=== PATIENT | female | born 2000 | race Caucasian/White ===

== ENCOUNTER 2023-04-08 22:09 | Outpatient (REF) | payer OTHER, SELFPAY ==
[2023-04-08 22:50] LABS: Basophils Absolute Auto 0.06 K/uL (0.00-0.30); Eosinophils Absolute Auto 0.04 K/uL (0.00-0.50); Eosinophils Percent Auto 0.7 % (0.0-7.0); Hematocrit 38.8 % (33.0-51.0); Immature Granulocytes Abs Auto 0.01 K/uL (0.00-0.30); Immature Granulocytes Pct Auto 0.2 %; Lymphocytes Percent Auto 30.7 % (20-44); Mean Corpuscular HGB Conc 34 gm/dL (32-36); Mean Corpuscular Hemoglobin 30 pg (26-34); Mean Corpuscular Volume 90 fL (80-100); Monocytes Percent Auto 5.8 % (0.0-11.0); Neutrophils Absolute Auto 3.61 K/uL (1.7-7.0); Neutrophils Percent Auto 61.6 % (42.0-72.0); Platelet Count* 413 K/uL (140-440); RDW Coefficient of Variation % 12.7 % (11.5-15.5); Red Blood Count 4.29 m/uL (4.00-5.20); White Blood Count* 5.86 K/uL (4.50-11.00)
[2023-04-08 23:05] LABS: Slide Review Reflex No
[2023-04-10 07:03] LABS: TPO Antibody 2.6 IU/mL (0.0-9.0); Thyroglobulin Antibody <0.9 IU/mL (0.0-4.0)
== END 2023-04-08 22:10 | disposition home or self-care (01) ==
LOC: NPINS 22:09
PROVIDERS: PCP Nurse Practitioner Family; Visit Provider Nurse Practitioner Family
DX: R07.0 Pain in throat (principal)
CPT/HCPCS: 84443; 85025; 86376; 86800

== ENCOUNTER 2023-05-30 11:25 | Outpatient (CLI) | payer OTHER, SELFPAY | END 2023-05-30 11:26 | disposition home or self-care (01) | LOC: NFLDREF 06-02 13:43 | PROVIDERS: PCP Family Medicine; Referring Provider Family Medicine; Visit Provider Family Medicine | DX: R30.0 Dysuria (principal); Z01.818 Encounter for other preprocedural examination; Z01.810 Encounter for preprocedural cardiovascular examination | CPT/HCPCS: 80053; 87086 ==